=== PATIENT | male | born 1970 | race Two or more races ===

== ENCOUNTER 2021-04-11 12:22 | Emergency (ER) | payer SELFPAY ==
[~2021-04-11] VITALS: Ht 182.9 cm; Wt 99.8 kg
[2021-04-11 13:08] LABS: Basophils # (auto) 0 10 ^3/uL (0-0.2); Basophils % (auto) 0.6 % (0.0-2.0); Eosinophils # (auto) 0.1 10 ^3/uL (0-0.8); Eosinophils % (auto) 1.7 % (0.0-7.0); Hematocrit 46.8 % (41.0-53.0); Hemoglobin 16.5 g/dL (13.5-17.5); Lymphocytes # (auto) 1.7 10 ^3/uL (0.4-5.4); Lymphocytes % (auto) 23.1 % (10.0-50.0); Mean Corpuscular Hemoglobin 31.4 pg (28.0-32.0); Mean Corpuscular Hgb Conc. 35.3 g/dL (32.0-36.0); Monocytes # (auto) 0.6 10 ^3/uL (0-1.3); Monocytes % (auto) 8.1 % (0.0-12.0); Neutrophils # (auto) 4.9 10 ^3/uL (1.6-8.6); Neutrophils % (auto) 66.5 % (37.0-80.0); Platelet Count (auto) 198 10^3/uL (140-450); Red Blood Cells 5.26 10^6/uL (4.5-5.90); Red Cell Distribution Width 13.3 % (11.8-14.3); White Blood Cell 7.4 10^3/uL (4.4-10.8)
[2021-04-11 13:35] LABS: Chloride 106 mmol/L (98-107); Potassium 4.5 mmol/L (3.5-5.1); Sodium 139 mmol/L (136-145)
[2021-04-11 13:43] LABS: Alanine Aminotransferase 27 U/L (16-61); Albumin 3.7 g/dL (3.4-5.0); Alkaline Phosphatase 49 U/L (45-117); Anion Gap 4 (5-15); Aspartate Aminotransferase 19 U/L (15-37); Blood Urea Nitrogen 17 mg/dL (7-18); Calcium 8.8 mg/dL (8.5-10.1); Carbon Dioxide 29 mmol/L (21-32); GFR African American 124 mL/min; GFR Non-African American 102 mL/min; Glucose 104 mg/dL (74-106); Total Protein 7.9 g/dL (6.4-8.2)
[2021-04-11 14:06] VITALS: BP 121/80
== END 2021-04-11 14:15 | disposition home or self-care (01) ==
LOC: ER 12:30
DX: R07.89 Other chest pain (principal)
CPT/HCPCS: 36415; 71046; 80053; 84484; 85025; 85379; 93005